=== PATIENT | female | born 1960 | race Caucasian/White ===

== ENCOUNTER → 2016-12-17 | Outpatient (REF) | payer OTHER ==
[~2016-12-17] MED LIST: CIPR500T3 PO; PERCOCET PO
== END ==
LOC: M SMT 16:53
PROVIDERS: ATTEND Nurse Practitioner Women's Health
DX: R39.15 Urgency of urination (principal)

== ENCOUNTER → 2017-01-10 | Outpatient (REF) | payer OTHER | LOC: M SMT 17:02 | PROVIDERS: ATTEND Specialist | DX: R35.0 Frequency of micturition (principal) ==

== ENCOUNTER → 2017-04-11 | Outpatient (REF) | payer OTHER ==
[2017-04-11 18:27] LABS: TOTAL PROTEIN 6.8 GM/DL (6.4-8.2)
[2017-04-11 18:28] LABS: VITAMIN B12 LEVEL 361 PG/ML
[2017-04-15 00:09] LABS: VITAMIN E LEVEL 16.7 mg/L (5.3-16.8)
[2017-04-15 11:54] LABS: ALBUMIN % 63.3 % (55.8-66.1); GAMMA GLOBULIN % 10.3 % (11.1-18.8)
== END ==
LOC: M LABNEURO 17:08
PROVIDERS: ATTEND Psychiatry & Neurology Neurology
DX: G72.9 Myopathy, unspecified (principal); G60.9 Hereditary and idiopathic neuropathy, unspecified

== ENCOUNTER → 2017-05-03 | Outpatient (CLI) | payer OTHER ==
--- NOTE | 2017-05-03 10:56 | REP ---
CT CHEST WITHOUT CONTRAST: HISTORY: Follow-up pulmonary nodule. Comparison chest CT study May 01, 2016. CT FINDINGS: There is no evidence of pleural or pericardial effusion. No infiltrate or lung mass is seen. Neither of the ground-glass opacities identified on May 01, [address] can be seen today. There are some dependent interstitial markings in the posterior lung bases bi laterally. No significant nodule is seen on today's CT study. The prior study showed a small 2 mm focal nodular density along the major fissure on the left. This cannot be seen today. No hilar or mediastinal mass is observed. No adrenal lesion is seen. The visualized upper abdominal structures are unremarkable. No bony abnormality is seen. IMPRESSION: No active cardiopulmonary disease. No significant pulmonary nodule is visible. Signed by Ryan Martinez MD 05/03/2017 11:51 A
== END ==
LOC: M RAD 08:50
PROVIDERS: ATTEND Internal Medicine Pulmonary Disease
DX: R91.1 Solitary pulmonary nodule (principal)

== ENCOUNTER → 2017-06-07 | Outpatient (CLI) | payer OTHER ==
--- NOTE | 2017-06-07 17:06 | REP ---
HISTORY: Assess first tarsometatarsal joint. There has been previous ORIF of the first tarsometatarsal joint. There are four internally affixing screws with an internal fixation plate medially. The first tarsometatarsal joint is markedly narrowed and irregular, but there is no evidence of complete fusion. There is marginal osteophytosis. Moderate degenerative change is seen throughout the foot. There is no evidence of an acute fracture. IMPRESSION: Previous ORIF and chronic changes as described above. Signed by Yusuf Cohen DO 06/07/2017 05:12 P
== END ==
LOC: M RAD 14:45
PROVIDERS: ATTEND Orthopaedic Surgery
DX: M77.42 Metatarsalgia, left foot (principal)

== ENCOUNTER → 2017-08-15 | Outpatient (CLI) | payer OTHER ==
[~2017-08-15] MED LIST changes: +ASPI1TAB PO; +BELL16.218 PR; +D32000TA PO; +FLOM5CAP PO; +LOSA50TA20 PO; +MAGN500T2 PO; +METO1TAB7 PO; +ONE50TAB PO; +OSPH1TAB PO; +OXYC1TAB23 PO; +PENT10CA PO; +RANI1TAB38 PO; +SERT50TA PO; +TRAZ50TA11 PO; +TRIPCAP6 PO
[2017-08-15 18:30] LABS: MEAN CORPUSCULAR HEMOGLOBIN 29.8 pg (27.0-33.0); MEAN CORPUSCULAR HGB CONC 32.6 g/dl (32.0-36.5); MEAN CORPUSCULAR VOLUME 91.5 fl (80.0-96.0); PLATELET COUNT, AUTOMATED 275 10^3/uL (150-450); RED CELL DISTRIBUTION WIDTH 12.1 % (11.5-14.5); WHITE BLOOD COUNT 6.4 10^3/uL (4.0-10.0)
[2017-08-15 18:51] LABS: ANION GAP 10 MEQ/L (8-16); BLOOD UREA NITROGEN 15 MG/DL (7-18); CALCIUM LEVEL 8.9 MG/DL (8.5-10.1); CARBON DIOXIDE LEVEL 29 MEQ/L (21-32); CHLORIDE LEVEL 100 MEQ/L (98-107); CREATININE FOR GFR 0.97 MG/DL (0.55-1.02); GLOMERULAR FILTRATION RATE > 60.0 (>51); GLUCOSE, FASTING 89 MG/DL (70-105); POTASSIUM SERUM 4.1 MEQ/L (3.5-5.1); SODIUM LEVEL 139 MEQ/L (136-145)
== END ==
LOC: M SMT 14:56
PROVIDERS: ATTEND Specialist
DX: Z01.812 Encounter for preprocedural laboratory examination (principal); R32 Unspecified urinary incontinence; R39.15 Urgency of urination; R35.1 Nocturia; N30.10 Interstitial cystitis (chronic) without hematuria; R39.89 Other symptoms and signs involving the genitourinary system

== ENCOUNTER 2017-08-19 08:11 | Day surgery (SDC) | payer OTHER ==
[~2017-08-19] VITALS: Ht 177.8 cm; Wt 88.5 kg
[~2017-08-19 08:11] MED LIST changes: -BELL16.218 PR; -OXYC1TAB23 PO
[2017-08-19] MEDS ORDERED: LR 1,000 ML IV ONE (08:15)
[2017-08-19] MEDS ORDERED: BOTULINUM INJ 100 UNITS (J0585) XX ONE (09:00)
[2017-08-19] MEDS ORDERED: fentaNYL 100 MCG/2 ML INJECTION (J3010) As Ordered ONE (09:28)
[2017-08-19] MEDS ORDERED: MIDAZOLAM INJ 2 MG/2 ML VIAL (J2250) As Ordered ONE (09:28)
[2017-08-19] MEDS ORDERED: PROPOFOL 200 MG/20 ML VIAL As Ordered ONE ×4 (09:28→11:45)
[2017-08-19] MEDS ORDERED: LIDOCAINE 2% INJ 100 MG/5 ML SDV (FOR ANES.) As Ordered ONE (09:28)
[2017-08-19] MEDS ORDERED: ROCURONIUM BROMIDE 50 MG/5 ML VIAL As Ordered ONE (09:28)
[2017-08-19] MEDS ORDERED: ONDANSETRON 4MG/2ML VIAL (J2405) As Ordered ONE (09:28)
[2017-08-19] MEDS ORDERED: LIDOCAINE 2% 5ML JELLY UROJET As Ordered ONE (10:41)
[2017-08-19] MEDS ORDERED: LIDOCAINE 2% MDV 20 ML VIAL As Ordered ONE (10:41)
[2017-08-19] MEDS ORDERED: BOTULINUM INJ 100 UNITS (J0585) As Ordered ONE ×2 (10:41→10:56)
[2017-08-19] MEDS ORDERED: BELLADONNA ALKALOIDS/OPIUM SUPP PR ONE ×3 (12:15→13:00)
[2017-08-19] MEDS ORDERED: fentaNYL 100 MCG/2 ML INJECTION (J3010) IV PRN (12:15)
[2017-08-19] MEDS ORDERED: ONDANSETRON 4MG/2ML VIAL (J2405) IV PRN (12:15)
[2017-08-19] MEDS ORDERED: LR 1,000 ML IV SCH (12:15)
[2017-08-19] MEDS ORDERED: BELL16.218 PR (12:18)
[2017-08-19] MEDS ORDERED: OXYC1TAB23 PO (12:19)
[2017-08-19 12:50] VITALS: BP 129/64
[2017-08-19] MEDS ORDERED: PERCOCET 5MG/325MG TAB As Ordered ONE (13:29)
[2017-08-19] MEDS ORDERED: PERCOCET 5MG/325MG TAB PO ONE (13:45)
--- NOTE | 2017-08-19 18:28 | RO ---
DATE OF PROCEDURE: 08/19/2017 PREOPERATIVE DIAGNOSIS: Interstitial cystitis. POSTOPERATIVE DIAGNOSIS: Interstitial cystitis with severe lateral ulcerations. PROCEDURE: Cystoscopy, hydrodistention, bladder biopsies, extensive fulguration, intravaginal Botox, intravesical Botox SURGEON: Dr. Tracy Hogan ANESTHESIA: General. MEDICATIONS: Ancef 2 grams preoperatively. SPECIMENS: Bladder biopsies. INDICATIONS FOR PROCEDURE: The patient is a 57-year-old female who has very severe urinary urgency, frequency, nocturia, burning with urination, and pain and spasms found on physical examination to have levator ani spasming. Urodynamic studies were redone since there was a question of obstruction but the second study did not show obstruction it just showed hypersensation and a small bladder capacity. After discussing all different options, alternatives, risks, and benefits it was decided to bring the patient to the operating room for cystoscopy, hydrodistention, bladder biopsies, intravaginal and intravesical Botox. We discussed exactly how this is done and what to expect both pre- and postprocedurally. We discussed the risks of the procedure which included but was not limited to the risks of general anesthesia, reactions to medication, bleeding, infection, difficulty urinating post procedurally with urinary retention. Informed consent was obtained in both verbal and written form. The patient was brought into the operating room. Sequential compression devices were in place and preoperative antibiotics had been given. General anesthesia was induced. The patient was then placed in the lithotomy position and careful attention was paid that her pressure points were well padded and protected. She was prepped and draped in the usual fashion. Next a rigid cystoscope was inserted. The urethra was noted to be open without any evidence of lesions or strictures. Upon entering the bladder both ureteral orifices were seen. There was hyperemia but no evidence of stones, erythematous patches or lesions were seen. At this point the patient's bladder was distended under gravity drainage using normal saline. This was distended for a total of 10 minutes. There was some detrusor instability with leakage around the cystoscope. When the bladder was emptied. She only had a total bladder capacity of 400 mL under anesthesia. She has significant bloody efflux and was found on repeat cystoscopy to have very significant bladder ulcerations. At this point bladder biopsies were done an extensive fulguration was done of the ulcerations after the fluid was switched to sterile water. Next, Botox was injected with 100 units throughout the bladder with 10 units each with 1 mL. Fulguration was done on one area that was bleeding. Next a 100 units of Botox was then injected in the levator ani muscles also in 10 different areas throughout the vagina using a 20 gauge needle. The patient had vaginal packing put in afterwards just for some acute bleeding and this will be removed in the recovery room. The patient was returned to the recovery room in stable condition.
== END 2017-08-19 14:10 | disposition home or self-care (01) ==
LOC: M SDC 08:11
PROVIDERS: ATTEND Specialist
DX: N30.10 Interstitial cystitis (chronic) without hematuria (principal); N32.89 Other specified disorders of bladder; R32 Unspecified urinary incontinence; R39.15 Urgency of urination; R35.1 Nocturia; I10 Essential (primary) hypertension; E78.00 Pure hypercholesterolemia, unspecified; K21.9 Gastro-esophageal reflux disease without esophagitis; M19.90 Unspecified osteoarthritis, unspecified site; M54.2 Cervicalgia; R29.898 Other symptoms and signs involving the musculoskeletal system; F32.9 Major depressive disorder, single episode, unspecified; R06.02 Shortness of breath; Z79.899 Other long term (current) drug therapy; Z79.82 Long term (current) use of aspirin; Z86.79 Personal history of other diseases of the circulatory system; Z90.710 Acquired absence of both cervix and uterus; Z98.51 Tubal ligation status

== ENCOUNTER 2017-12-30 10:58 | Day surgery (SDC) | payer OTHER ==
[2017-12-30] MEDS: NS 1,000 ML IV (12:25)
[2017-12-30] MEDS ORDERED: PROPOFOL 200 MG/20 ML VIAL As Ordered (13:11)
== END 2017-12-30 14:21 | disposition home or self-care (01) ==
LOC: M OPP 10:58
DX: R19.4 Change in bowel habit (principal); K59.00 Constipation, unspecified; K64.8 Other hemorrhoids; K22.70 Barrett's esophagus without dysplasia; K21.9 Gastro-esophageal reflux disease without esophagitis; K22.8 Other specified diseases of esophagus; K44.9 Diaphragmatic hernia without obstruction or gangrene; R01.1 Cardiac murmur, unspecified; I10 Essential (primary) hypertension; E78.5 Hyperlipidemia, unspecified; M19.90 Unspecified osteoarthritis, unspecified site; M54.9 Dorsalgia, unspecified; F32.9 Major depressive disorder, single episode, unspecified; Z87.828 Personal history of other (healed) physical injury and trauma; R42 Dizziness and giddiness; R06.2 Wheezing; N30.90 Cystitis, unspecified without hematuria; Z79.82 Long term (current) use of aspirin; Z79.899 Other long term (current) drug therapy; Z80.1 Family history of malignant neoplasm of trachea, bronchus and lung; Z80.3 Family history of malignant neoplasm of breast
CPT/HCPCS: 45378

== ENCOUNTER 2018-01-27 08:53 | Day surgery (SDC) | payer OTHER ==
[~2018-01-27 08:53] MED LIST changes: +ACETAMINOPHEN 325 MG TAB PO; -ASPI1TAB PO; -CIPR500T3 PO; -D32000TA PO; -FLOM5CAP PO; -LOSA50TA20 PO; -MAGN500T2 PO; -METO1TAB7 PO; -ONE50TAB PO; -OSPH1TAB PO; -PENT10CA PO; -PERCOCET PO; -RANI1TAB38 PO; -SERT50TA PO; -TRAZ50TA11 PO; -TRIPCAP6 PO
[2018-01-27] MEDS ORDERED: TRIMETHOBENZAMIDE 300 MG CAP PO (09:00)
[2018-01-27] MEDS ORDERED: LIDOCAINE 1% SDV 5 ML VIAL SQ (09:00)
[2018-01-27] MEDS: LIDOCAINE 3.5 % 1ML OPHTH TOPICAL GEL OU (10:41)
[2018-01-27] MEDS ORDERED: MIDAZOLAM INJ 2 MG/2 ML VIAL (J2250) As Ordered (10:57)
[2018-01-27] MEDS ORDERED: PROPOFOL 200 MG/20 ML VIAL As Ordered (10:57)
[2018-01-27] MEDS ORDERED: fentaNYL 100 MCG/2 ML INJECTION (J3010) As Ordered (10:57)
[2018-01-27] MEDS: POVIDONE-IODINE 5% OPHTH PREP SOL 30ML As Ordered (10:59)
[2018-01-27] MEDS: TOBRADEX OPHTH OINT 3.5 GM As Ordered (11:15)
[2018-01-27] MEDS ORDERED: ACETAMINOPHEN TAB 650MG DOSE (2X325MG) PO (11:45)
[2018-01-27] MEDS ORDERED: ONDANSETRON 4MG/2ML VIAL (J2405) IV (11:45)
[2018-01-27] MEDS ORDERED: LR 1,000 ML IV (11:45)
== END 2018-01-27 12:07 | disposition home or self-care (01) ==
LOC: M SDC 08:53
DX: H02.834 Dermatochalasis of left upper eyelid (principal); H02.831 Dermatochalasis of right upper eyelid; I10 Essential (primary) hypertension; R32 Unspecified urinary incontinence; M17.0 Bilateral primary osteoarthritis of knee; M47.812 Spondylosis without myelopathy or radiculopathy, cervical region; E55.9 Vitamin D deficiency, unspecified; K58.1 Irritable bowel syndrome with constipation; G47.00 Insomnia, unspecified; E78.00 Pure hypercholesterolemia, unspecified; R12 Heartburn; F32.9 Major depressive disorder, single episode, unspecified; R42 Dizziness and giddiness; Z79.899 Other long term (current) drug therapy; Z79.82 Long term (current) use of aspirin
CPT/HCPCS: 15823

== ENCOUNTER → 2018-04-10 | Outpatient (CLI) | payer OTHER ==
[~2018-04-10] MED LIST changes: -ACETAMINOPHEN 325 MG TAB PO; +METHACHOLINE KIT (J7674) INH
== END ==
LOC: M CARPUL 10:51
DX: R94.2 Abnormal results of pulmonary function studies (principal)
CPT/HCPCS: J7674

== ENCOUNTER → 2018-06-19 | Outpatient (REF) | payer OTHER ==
[2018-06-19 18:37] LABS: BACTERIA, URINE AUTO NEGATIVE (NEGATIVE); MUCUS, URINE SMALL (NEGATIVE); RBC, URINE AUTO 2 /HPF (0-3); SQUAMOUS EPITHELIAL CELL UR AU 1 /HPF (0-6); WBC, URINE AUTO 4 /HPF (0-3)
== END ==
LOC: M SMT 17:10
DX: R32 Unspecified urinary incontinence (principal)
CPT/HCPCS: 81015

== ENCOUNTER 2018-07-01 12:20 | Emergency (ER) | payer OTHER ==
[2018-07-01] MEDS: NS 500 ML IV (13:29)
[2018-07-01 13:42] LABS: BASO % 0.3 % (0.0-1.0); EOS # 0.1 10^3/uL (0.0-0.50); HEMATOCRIT 36.9 % (36.0-47.0); HEMOGLOBIN 12.2 g/dl (12.0-15.5); IMMATURE GRANULOCYTE % 0.3 % (0-3.0); LYMPH # 1.5 10^3/uL (1.5-4.5); LYMPH % 20.6 % (24.0-44.0); MEAN CORPUSCULAR HEMOGLOBIN 30.1 pg (27.0-33.0); MEAN CORPUSCULAR HGB CONC 33.1 g/dl (32.0-36.5); MEAN CORPUSCULAR VOLUME 91.1 fl (80.0-96.0); MONO # 0.8 10^3/uL (0.0-0.8); MONO % 11.4 % (0.0-5.0); NEUTROPHILS # 4.7 10^3/uL (1.8-7.7); NEUTROPHILS % 66.4 % (36.0-66.0); PLATELET COUNT, AUTOMATED 212 10^3/uL (150-450); RED BLOOD COUNT 4.05 10^6/uL (4.00-5.40); RED CELL DISTRIBUTION WIDTH 12.3 % (11.5-14.5); WHITE BLOOD COUNT 7.1 10^3/uL (4.0-10.0)
[2018-07-01 14:17] LABS: ANION GAP 5 MEQ/L (8-16); BLOOD UREA NITROGEN 17 MG/DL (7-18); CALCIUM LEVEL 8.7 MG/DL (8.8-10.2); CARBON DIOXIDE LEVEL 30 MEQ/L (21-32); CHLORIDE LEVEL 104 MEQ/L (98-107); CREATININE FOR GFR 1.01 MG/DL (0.55-1.30); GLOMERULAR FILTRATION RATE 59.5 (>45); GLUCOSE, FASTING 91 MG/DL (70-100); POTASSIUM SERUM 4.4 MEQ/L (3.5-5.1); SODIUM LEVEL 139 MEQ/L (136-145)
[2018-07-01 14:18] LABS: CK-MB VALUE MASS < 1.0 NG/ML (<3.6); CPK CREATINE PHOSPHOKINASE 42 U/L (26-192); TROPONIN I < 0.02 NG/ML (< 0.10)
[2018-07-01] MEDS ORDERED: ISOVUE-370 76% 100ML VIAL (Q9967) As Ordered (14:39)
[2018-07-01 14:55] LABS: ALKALINE PHOSPHATASE 63 U/L (45-117); ALT/SGPT 23 U/L (12-78); AST/SGOT 13 U/L (7-37); BILIRUBIN,DIRECT 0.2 MG/DL (0.0-0.2); BILIRUBIN,TOTAL 0.6 MG/DL (0.2-1.0); TOTAL PROTEIN 6.4 GM/DL (6.4-8.2)
[2018-07-01 14:56] LABS: ALBUMIN 3.7 GM/DL (3.2-5.2); ALBUMIN/GLOBULIN RATIO 1.37 (1.00-1.93)
[2018-07-01 15:01] LABS: KETONE, URINE AUTO RFX NEGATIVE (NEGATIVE); MUCUS, URINE RFX SMALL (NEGATIVE); NITRITE, URINE AUTO RFX NEGATIVE (NEGATIVE); RBC, URINE AUTO RFX 7 /HPF (0-3); SPECIFIC GRAVITY UR AUTO RFX 1.009 (1.002-1.035); SQUAM EPITHELIAL CELL UR AURFX 1 /HPF (0-6); WBC, URINE AUTO RFX 4 /HPF (0-3)
[2018-07-01 15:02] LABS: LEUKOCYTE ESTERASE UR AUTO RFX TRACE (NEGATIVE)
== END 2018-07-01 16:17 | disposition home or self-care (01) ==
LOC: M ED 12:20
DX: K37 Unspecified appendicitis (principal)
CPT/HCPCS: Q9967

== ENCOUNTER → 2018-07-15 | Outpatient (CLI) | payer OTHER ==
[2018-07-15 12:05] LABS: HEMATOCRIT 39.9 % (36.0-47.0); MEAN CORPUSCULAR HEMOGLOBIN 29.8 pg (27.0-33.0); MEAN CORPUSCULAR HGB CONC 32.6 g/dl (32.0-36.5); MEAN CORPUSCULAR VOLUME 91.5 fl (80.0-96.0); PLATELET COUNT, AUTOMATED 316 10^3/uL (150-450); RED BLOOD COUNT 4.36 10^6/uL (4.00-5.40); RED CELL DISTRIBUTION WIDTH 12.1 % (11.5-14.5); WHITE BLOOD COUNT 6.8 10^3/uL (4.0-10.0)
[2018-07-15 12:33] LABS: AMORPHOUS SEDIMENT, URINE MOD AMOUNT (NEGATIVE); BACTERIA, URINE SMALL AMOUNT; GRANULAR CAST, URINE 0-1 /lpf; HYALINE CAST, URINE 0-1 /lpf (0-1); SQUAMOUS EPITHELIAL CELL URINE SMALL AMOUNT /hpf (SMALL AMT); TRANSITIONAL EPI CELLS, URINE SMALL AMOUNT /hpf; WBC, URINE 15-20 /hpf (0-3)
[2018-07-15 12:34] LABS: MICROSCOPIC EXAM PERFORMED
[2018-07-15 14:13] LABS: ALBUMIN 3.8 GM/DL (3.2-5.2); ALBUMIN/GLOBULIN RATIO 1.36 (1.00-1.93); ALKALINE PHOSPHATASE 58 U/L (45-117); ALT/SGPT 42 U/L (12-78); ANION GAP 9 MEQ/L (8-16); AST/SGOT 24 U/L (7-37); BILIRUBIN,TOTAL 0.5 MG/DL (0.2-1.0); BLOOD UREA NITROGEN 16 MG/DL (7-18); CARBON DIOXIDE LEVEL 29 MEQ/L (21-32); CHLORIDE LEVEL 102 MEQ/L (98-107); CREATININE FOR GFR 0.94 MG/DL (0.55-1.30); GLOMERULAR FILTRATION RATE > 60.0 (>45); GLUCOSE, FASTING 85 MG/DL (70-100); POTASSIUM SERUM 4.4 MEQ/L (3.5-5.1); SODIUM LEVEL 140 MEQ/L (136-145); TOTAL PROTEIN 6.6 GM/DL (6.4-8.2)
== END ==
LOC: M LAB 10:25
DX: R32 Unspecified urinary incontinence (principal)
CPT/HCPCS: 80053

== ENCOUNTER 2018-07-22 08:07 | Day surgery (SDC) | payer OTHER ==
[2018-07-22] MEDS ORDERED: fentaNYL 250 MCG/5 ML INJECTION (J3010) As Ordered (08:14)
[2018-07-22] MEDS ORDERED: LIDOCAINE 2% INJ 100 MG/5 ML SDV (FOR ANES.) As Ordered (08:14)
[2018-07-22] MEDS ORDERED: PROPOFOL 200 MG/20 ML VIAL As Ordered ×4 (08:14→10:28)
[2018-07-22] MEDS ORDERED: MIDAZOLAM INJ 2 MG/2 ML VIAL (J2250) As Ordered (08:15)
[2018-07-22] MEDS: LR 1,000 ML IV (08:33)
[2018-07-22] MEDS: BOTULINUM INJ 100 UNITS (J0585) XX (08:45)
[2018-07-22] MEDS ORDERED: METOPROLOL SUCC *XL* 25MG TAB (TopROL *XL*) PO (09:15)
[2018-07-22] MEDS ORDERED: fentaNYL 100 MCG/2 ML INJECTION (J3010) As Ordered (09:20)
[2018-07-22] MEDS: BOTULINUM INJ 100 UNITS (J0585) As Ordered ×3 (09:34→10:10)
[2018-07-22] MEDS ORDERED: ONDANSETRON 4MG/2ML VIAL (J2405) As Ordered (10:05)
[2018-07-22] MEDS ORDERED: dexameTHASONE 4 MG/ML 1ML VIAL (J1100) As Ordered ×2 (10:05)
[2018-07-22] MEDS ORDERED: KETOROLAC 60 MG/2 ML VIAL (J1885) As Ordered (10:05)
[2018-07-22] MEDS: LIDOCAINE 2% 5ML JELLY UROJET As Ordered ×2 (10:05)
[2018-07-22] MEDS: LIDOCAINE 1% MDV INJ 50 ML VIAL As Ordered (10:05)
[2018-07-22] MEDS: TRIAMCINOLONE ACETONIDE SUSP 40 MG/ML VIAL (J3301) As Ordered (10:30)
[2018-07-22] MEDS ORDERED: MORPHINE 10 MG/ML 1ML VIAL (J2270) As Ordered (10:55)
[2018-07-22] MEDS ORDERED: PERCOCET 5MG/325MG TAB PO (11:00)
[2018-07-22] MEDS ORDERED: fentaNYL 100 MCG/2 ML INJECTION (J3010) IV (11:00)
[2018-07-22] MEDS ORDERED: LR 1,000 ML IV (11:00)
[2018-07-22] MEDS: MORPHINE 10 MG/ML 1ML VIAL (J2270) IV ×3 (11:00→11:10)
[2018-07-22] MEDS ORDERED: ONDANSETRON 4MG/2ML VIAL (J2405) IV (11:00)
[2018-07-22] MEDS ORDERED: METOCLOPRAMIDE INJ 10MG/2ML VIAL (J2765) IV (11:00)
[2018-07-22] MEDS ORDERED: MEPERIDINE INJ 25 MG/ML VIAL (J2175) IV (11:00)
== END 2018-07-22 12:50 | disposition home or self-care (01) ==
LOC: M SDC 08:07
DX: R35.0 Frequency of micturition (principal); R39.15 Urgency of urination; R32 Unspecified urinary incontinence; R39.89 Other symptoms and signs involving the genitourinary system; N30.10 Interstitial cystitis (chronic) without hematuria; I10 Essential (primary) hypertension; E78.5 Hyperlipidemia, unspecified; Z79.82 Long term (current) use of aspirin; Z79.899 Other long term (current) drug therapy
CPT/HCPCS: 52287

== ENCOUNTER → 2018-09-18 | Outpatient (CLI) | payer OTHER ==
[~2018-09-18] MED LIST changes: +ASPI1TAB PO; +BELL16.218 PR; +CIPR-249 PO; +CIPR500T3 PO; +D32000TA PO; +FLAG500T PO; +FLOM0.4C39 PO; +GASTROGRAFIN SOLUTION 30ML (Q9963) As Ordered ONE; +ISOVUE-370 76% 100ML VIAL (Q9967) As Ordered ONE; +LOSA50TA88 PO; +MAGN500T2 PO; -METHACHOLINE KIT (J7674) INH; +METO1TAB7 PO; +MIRA3350 PO; +ONE50TAB PO; +OSPH1TAB PO; +OXYC1TAB23 PO; +PENT10CA PO; +PERC5TAB12 PO; +PERCOCET PO; +RANI1TAB38 PO; +SERT50TA PO; +TRAZ-160 PO; +TRIPCAP6 PO; +ZOFR4TAB14 PO
--- NOTE | 2018-09-19 05:25 | REP ---
Clinical: Upper abdominal pain. Technique: Axial contrast enhanced images from the lung bases to the pubic symphysis using oral (per protocol) and 100 ml Isovue 370 intravenous contrast material with coronal and sagittal re-formations. Comparison: 07/01/2018. Findings: Lung bases are clear. Visualized heart and pericardium appears normal. Small hiatal hernia identified at the gastroesophageal junction. Liver, spleen, pancreas, gallbladder, bilateral adrenal glands and kidneys are normal. The enteric system is without obstruction or acute inflammatory process. Previously noted area of inflammatory change involving the greater omentum has resolved. Pelvis demonstrates relatively normal, partially collapsed bladder and evidence for prior hysterectomy. No ascites. No adenopathy. No free air. Abdominal aorta and vasculature without aneurysm or dissection. Musculoskeletal structures demonstrate age-related changes without focal osseous abnormality. Impression: 1. Hiatal hernia. 2. Prior hysterectomy. 3. No acute abdominopelvic pathology appreciated. Electronically Signed by Shailesh Kim MD 09/19/2018 05:16 A
== END ==
LOC: M RAD 15:27
PROVIDERS: ATTEND Physician Assistant Medical
DX: R93.3 Abnormal findings on diagnostic imaging of other parts of digestive tract (principal); R10.10 Upper abdominal pain, unspecified
CPT/HCPCS: 74177; Q9963; Q9967

== ENCOUNTER → 2018-09-24 | Outpatient (REF) | payer OTHER ==
[~2018-09-24] MED LIST changes: -GASTROGRAFIN SOLUTION 30ML (Q9963) As Ordered ONE; -ISOVUE-370 76% 100ML VIAL (Q9967) As Ordered ONE
[2018-09-24 18:46] LABS: BACTERIA, URINE AUTO NEGATIVE (NEGATIVE); MUCUS, URINE SMALL (NEGATIVE); RBC, URINE AUTO 89 /HPF (0-3); SQUAMOUS EPITHELIAL CELL UR AU 1 /HPF (0-6); WBC, URINE AUTO 1 /HPF (0-3)
== END ==
LOC: M SMT 17:03
PROVIDERS: ATTEND Specialist
DX: R32 Unspecified urinary incontinence (principal)

== ENCOUNTER → 2018-10-27 | Outpatient (REF) | payer OTHER ==
[2018-10-27 18:12] LABS: BACTERIA, URINE AUTO 1+ (NEGATIVE); RBC, URINE AUTO 17 /HPF (0-3); SQUAMOUS EPITHELIAL CELL UR AU 0 /HPF (0-6); WBC, URINE AUTO 17 /HPF (0-3)
== END ==
LOC: M SMT 16:58
PROVIDERS: ATTEND Specialist
DX: R32 Unspecified urinary incontinence (principal)

== ENCOUNTER 2018-11-14 06:02 | Day surgery (SDC) | payer OTHER ==
[~2018-11-14] VITALS: Ht 177.8 cm; Wt 82.6 kg
[~2018-11-14 06:02] MED LIST changes: +LR 1,000 ML IV ONE; +ZOFR4TAB16 PO
[2018-11-14] MEDS ORDERED: ceFAZolin 2 GM/D5W 50 ML IV BAG (J0690 PER 500MG) As Ordered ONE (06:34)
[2018-11-14] MEDS ORDERED: PROPOFOL 200 MG/20 ML VIAL As Ordered ONE ×2 (06:47→08:02)
[2018-11-14] MEDS ORDERED: ONDANSETRON 4MG/2ML VIAL (J2405) As Ordered ONE (06:47)
[2018-11-14] MEDS ORDERED: LIDOCAINE 2% INJ 100 MG/5 ML SDV (FOR ANES.) As Ordered ONE (06:47)
[2018-11-14] MEDS ORDERED: dexameTHASONE 4 MG/ML 1ML VIAL (J1100) As Ordered ONE (06:47)
[2018-11-14] MEDS ORDERED: ROCURONIUM BROMIDE 50 MG/5 ML VIAL As Ordered ONE (06:47)
[2018-11-14] MEDS ORDERED: fentaNYL 100 MCG/2 ML INJECTION (J3010) As Ordered ONE (06:48)
[2018-11-14] MEDS ORDERED: MIDAZOLAM INJ 2 MG/2 ML VIAL (J2250) As Ordered ONE (06:48)
[2018-11-14] MEDS ORDERED: LIDOCAINE 2% 5ML JELLY UROJET As Ordered ONE (07:12)
[2018-11-14] MEDS ORDERED: LIDOCAINE 1% MDV INJ 50 ML VIAL As Ordered ONE (07:12)
[2018-11-14] MEDS ORDERED: BOTULINUM INJ 100 UNITS (J0585) As Ordered ONE (07:12)
[2018-11-14] MEDS ORDERED: TRIAMCINOLONE ACETONIDE SUSP 40 MG/ML VIAL (J3301) As Ordered ONE (07:35)
[2018-11-14] MEDS ORDERED: KETOROLAC 60 MG/2 ML VIAL (J1885) As Ordered ONE (07:58)
[2018-11-14] MEDS ORDERED: fentaNYL 100 MCG/2 ML INJECTION (J3010) IV PRN (09:00)
[2018-11-14] MEDS ORDERED: NORCO, ANEXSIA 5/325MG TABLET (HYDROcodone/ACETAMINOPHEN) PO PRN (09:00)
[2018-11-14] MEDS ORDERED: ONDANSETRON 4MG/2ML VIAL (J2405) IV PRN (09:00)
[2018-11-14] MEDS ORDERED: LR 1,000 ML IV SCH (09:00)
--- NOTE | 2018-11-14 09:32 | RO ---
DATE OF PROCEDURE: 11/14/2018 PREOPERATIVE DIAGNOSIS: Interstitial cystitis of Dain's ulcerations with severe urinary urgency and urge incontinence. POSTOPERATIVE DIAGNOSIS: Interstitial cystitis of Dain's ulcerations with severe urinary urgency and urge incontinence. PROCEDURE: Cystoscopy, hydrodistention, and intravesical triamcinolone, and intravesical Botox with 100 units SURGEON: Dr. Tracy Hogan ANESTHESIA: MAC. MEDICATIONS: Ancef 2 grams preoperatively. DRAINS: None. FINDINGS: Significant Dain's ulcers throughout the bladder and difficulty distending the bladder because of significant detrusor instability and leakage. INDICATIONS FOR PROCEDURE: The patient is a 58-year-old female with a diagnosis of interstitial cystitis and Dain's ulcerations on L Rodarte was used the last year with biopsies showing dense plasma cell infiltrate and mass cells in the past. She had undergone cystoscopy, hydrodistention, and intravesical Botox 06/19/2018 and 08/19/2017, both with significant improvement. She comes in again with severe pain with urination, urinary frequency, urinary urgency, and urge incontinence. After discussing all different options, alternatives, risks, and benefits it was decided to bring her back to the operating room for surgical management. PROCEDURE: The patient was brought into the operating room. Sequential compression devices were in place and JACLYN stockings. Preoperative antibiotics were given. MAC anesthesia was induced and then she was placed in the lithotomy position. Careful attention was paid that her pressure points were well padded and protected. She was prepped and draped in the usual fashion. Next a 21-Romansh cystoscope was inserted and normal saline was used upon entering the bladder both ureteral orifices were seen. There were significant Dain's ulcerations which were seen even prior to filling but which worsened significantly with bladder filling upon filling the bladder urine just leaked through the urethra with detrusor instability and leakage. I did try to hold the urethra up so that I could distend the bladder and held this distended for at least 10 minutes. The bladder was then emptied and next I utilized 40 mg per cc of triamcinolone and 10 mL of normal saline and I injected this throughout the ulcerations then I injected 100 units of Botox mixed with 10 mL of injectable saline also throughout the bladder in 1 mL increments. I then changed the scope to a continuous flow resectoscope with a loop and I fulgurated all the ulcerated areas. At this point the patient's bladder was emptied and a red rubber catheter was placed with a slurry of lidocaine 50 mL 1% and lidocaine jelly to help with postprocedural discomfort. The patient tolerated the procedure well and was returned to the recovery room in stable condition.
[2018-11-14 10:00] VITALS: BP 135/87
== END 2018-11-14 10:15 | disposition home or self-care (01) ==
LOC: M SDC 06:02
PROVIDERS: ATTEND Specialist
DX: N30.10 Interstitial cystitis (chronic) without hematuria (principal); N39.41 Urge incontinence; I10 Essential (primary) hypertension; K21.9 Gastro-esophageal reflux disease without esophagitis; R01.1 Cardiac murmur, unspecified; Z79.899 Other long term (current) drug therapy; Z79.82 Long term (current) use of aspirin
CPT/HCPCS: 52260; 52287; J0585; J0690; J1100; J1885; J2250; J2405; J3010; J3301

== ENCOUNTER → 2019-03-03 | Outpatient (REF) | payer OTHER ==
[~2019-03-03] MED LIST changes: -ASPI1TAB PO; +ASPI81TA26 PO; -LR 1,000 ML IV ONE; +SERT-141 PO; -SERT50TA PO; -TRAZ-160 PO; +TRAZ-252 PO
[2019-03-03 13:24] LABS: APPEARANCE, URINE HAZY (CLEAR); BACTERIA, URINE AUTO NEGATIVE (NEGATIVE); BILIRUBIN, URINE AUTO NEGATIVE (NEGATIVE); BLOOD, URINE BLOOD 2+ (NEGATIVE); COLOR, URINE YELLOW (YELLOW); GLUCOSE, URINE (UA) AUTO NEGATIVE (NEGATIVE); KETONE, URINE AUTO NEGATIVE (NEGATIVE); LEUKOCYTE ESTERASE, URINE AUTO 1+ (NEGATIVE); MUCUS, URINE SMALL (NEGATIVE); NITRITE, URINE AUTO NEGATIVE (NEGATIVE); PROTEIN, URINE AUTO 1+ mg/dL (NEGATIVE); RBC, URINE AUTO 26 /HPF (0-3); SQUAMOUS EPITHELIAL CELL UR AU 1 /HPF (0-6); UROBILINOGEN, URINE AUTO 0.2 mg/dL (0.0-2.0); WBC, URINE AUTO 34 /HPF (0-3)
== END ==
LOC: M SMT 12:36
PROVIDERS: ATTEND Nurse Practitioner Women's Health
DX: N30.10 Interstitial cystitis (chronic) without hematuria (principal)

== ENCOUNTER 2019-04-06 07:31 | Day surgery (SDC) | payer OTHER ==
[~2019-04-06] VITALS: Ht 177.8 cm; Wt 87.7 kg
[~2019-04-06 07:31] MED LIST changes: +LR 1,000 ML IV ONE
[2019-04-06] MEDS ORDERED: ceFAZolin 2 GM/D5W 50 ML IV BAG (J0690 PER 500MG) As Ordered ONE (07:54)
[2019-04-06] MEDS ORDERED: dexameTHASONE 4 MG/ML 1ML VIAL (J1100) As Ordered ONE (08:22)
[2019-04-06] MEDS ORDERED: LIDOCAINE 2% INJ 100 MG/5 ML SDV (FOR ANES.) As Ordered ONE (08:22)
[2019-04-06] MEDS ORDERED: PROPOFOL 200 MG/20 ML VIAL As Ordered ONE (08:22)
[2019-04-06] MEDS ORDERED: ONDANSETRON 4MG/2ML VIAL (J2405) As Ordered ONE (08:22)
[2019-04-06] MEDS ORDERED: fentaNYL 100 MCG/2 ML INJECTION (J3010) As Ordered ONE (08:23)
[2019-04-06] MEDS ORDERED: MIDAZOLAM INJ 2 MG/2 ML VIAL (J2250) As Ordered ONE (08:23)
[2019-04-06] MEDS ORDERED: LIDOCAINE 2% 5ML JELLY UROJET As Ordered ONE (09:17)
[2019-04-06] MEDS ORDERED: BOTULINUM INJ 100 UNITS (J0585) As Ordered ONE (09:23)
[2019-04-06] MEDS ORDERED: TRIAMCINOLONE ACETONIDE SUSP 40 MG/ML VIAL (J3301) As Ordered ONE ×2 (09:24→10:08)
[2019-04-06] MEDS ORDERED: KETOROLAC 60 MG/2 ML VIAL (J1885) As Ordered ONE (10:13)
[2019-04-06] MEDS ORDERED: LIDOCAINE 1% MDV INJ 50 ML VIAL As Ordered ONE (10:17)
[2019-04-06] MEDS ORDERED: LABETALOL HCL 100 MG/20 ML VIAL As Ordered ONE ×2 (10:26→11:27)
[2019-04-06] MEDS ORDERED: LABETALOL HCL 100 MG/20 ML VIAL IV PRN (10:45)
[2019-04-06] MEDS ORDERED: PERCOCET 5MG/325MG TAB PO PRN (10:45)
[2019-04-06] MEDS ORDERED: ONDANSETRON 4MG/2ML VIAL (J2405) IV PRN (10:45)
[2019-04-06] MEDS ORDERED: LR 1,000 ML IV SCH (10:45)
[2019-04-06] MEDS ORDERED: BELLADONNA 16.2mg/OPIUM 30mg 1 EA SUPP PR PRN (11:15)
[2019-04-06 13:20] VITALS: BP 125/70
--- NOTE | 2019-04-06 22:29 | RO ---
DATE OF PROCEDURE: 04/06/2019 PREOPERATIVE DIAGNOSIS: Interstitial cystitis with severe urgency and urge incontinence and urinary frequency with Hunner's ulcerations. POSTOPERATIVE DIAGNOSIS: Interstitial cystitis with severe urgency and urge incontinence and urinary frequency with Hunner's ulcerations. PROCEDURE: Cystoscopy, hydrodistention, extensive fulguration, intravesical Botox with 200 units, and triamcinolone. FINDINGS: Significant ulcerations throughout the bladder. SURGEON: Dr. Tracy Hogan ABRASIVE GRINDER: ANESTHESIA: INDICATIONS FOR PROCEDURE: The patient is a 58-year-old female with a history of interstitial cystitis with significant urinary urgency, frequency, and urge incontinence. She has had triamcinolone injections into the ulcers and Botox 100 units on 11/14/2018, 07/24/2018 and 08/19/2017. She called because after the last procedure, she did very well but now again is having severe urethral pain and significant urgency, frequency, and urge incontinence again and she would like to proceed with the same procedure. But this time we talked about that we would try to 200 units of Botox to see if this lasts a little bit longer this time. All different options, alternatives, risks and benefits were discussed. Informed consent was obtained. The biggest risk the patient understands is urinary retention requiring catheterization postprocedurally. DESCRIPTION OF PROCEDURE: The patient was brought into the operating room. Sequential compression devices were in place and preoperative antibiotics had been given, anesthesia was induced. She was then placed in the lithotomy position and careful attention was paid that her pressure points were well padded and protected. Next, she was prepped and draped in the usual fashion. A #21-Arabic cystoscope was inserted. The urethra was noted to be open without any evidence of lesions or strictures. Upon entering the bladder, both ureteral orifices were seen. Even before hydrodistention, there were significant ulcerations and erythema seen throughout the bladder, especially on the left lateral wall and the right base of the bladder. The bladder was distended, and there was significant leakage around the cystoscope, so it was hard to tell what the total bladder capacity was. At this point, extensive fulguration was done to the ulcerations. Next, 200 units of Botox was injected in 20 different injection sites throughout the bladder, 1 mL and 10 units of Botox each and then triamcinolone 40 mg/mL was injected into the Hunner's ulcerations with a 1/2 mL in each ulceration, and this was done about five for six times. At the conclusion of the procedure, the patient's bladder was emptied and a slurry of lidocaine jelly and 50 mL of intravesical lidocaine were placed intravesically through a red rubber catheter to help with postprocedural pain control. The patient tolerated the procedure well and was returned to the recovery room in stable condition.
== END 2019-04-06 14:16 | disposition home or self-care (01) ==
LOC: M SDC 07:31
PROVIDERS: ATTEND Specialist
DX: N30.10 Interstitial cystitis (chronic) without hematuria (principal); N39.41 Urge incontinence; R35.0 Frequency of micturition; N32.89 Other specified disorders of bladder; N76.1 Subacute and chronic vaginitis; I10 Essential (primary) hypertension; R01.1 Cardiac murmur, unspecified; K22.70 Barrett's esophagus without dysplasia; M19.90 Unspecified osteoarthritis, unspecified site; F32.9 Major depressive disorder, single episode, unspecified; J45.909 Unspecified asthma, uncomplicated; R11.0 Nausea; Z79.899 Other long term (current) drug therapy; Z79.82 Long term (current) use of aspirin; Z87.820 Personal history of traumatic brain injury; Z98.51 Tubal ligation status; Z90.710 Acquired absence of both cervix and uterus
CPT/HCPCS: 52214; 52265; 52287; J0585; J0690; J1100; J1885; J2250; J2405; J3010; J3301; L8606

== ENCOUNTER → 2019-06-15 | Outpatient (REF) | payer OTHER ==
[~2019-06-15] MED LIST changes: -LR 1,000 ML IV ONE; +OMEGCAP9 PO; +ONE50TAB3 PO
[2019-06-15 13:12] LABS: APPEARANCE, URINE CLOUDY (CLEAR); BACTERIA, URINE AUTO 1+ (NEGATIVE); BILIRUBIN, URINE AUTO NEGATIVE (NEGATIVE); BLOOD, URINE BLOOD 3+ (NEGATIVE); COLOR, URINE YELLOW (YELLOW); GLUCOSE, URINE (UA) AUTO NEGATIVE (NEGATIVE); KETONE, URINE AUTO NEGATIVE (NEGATIVE); LEUKOCYTE ESTERASE, URINE AUTO 2+ (NEGATIVE); MUCUS, URINE SMALL (NEGATIVE); NITRITE, URINE AUTO POSITIVE (NEGATIVE); PROTEIN, URINE AUTO 1+ mg/dL (NEGATIVE); RBC, URINE AUTO 115 /HPF (0-3); SPECIFIC GRAVITY URINE AUTO 1.015 (1.002-1.035); SQUAMOUS EPITHELIAL CELL UR AU 1 /HPF (0-6); UROBILINOGEN, URINE AUTO 0.2 mg/dL (0.0-2.0); WBC, URINE AUTO TNTC /HPF (0-3)
== END ==
LOC: M SMT 12:31
PROVIDERS: ATTEND Urology
DX: N30.10 Interstitial cystitis (chronic) without hematuria (principal)

== ENCOUNTER → 2019-07-27 | Outpatient (REF) | payer OTHER ==
[~2019-07-27] MED LIST changes: -OMEGCAP9 PO; -ONE50TAB3 PO
[2019-07-27 14:26] LABS: TOTAL PROTEIN,RANDOM URINE 53.2 MG/DL (0.0-12.0)
[2019-07-27 14:48] LABS: COMPLEMENT C3 150 MG/DL (90-180); COMPLEMENT C4 35 MG/DL (10-40); HEPATITIS B SURFACE ANTIBODY NEGATIVE (POSITIVE); HEPATITIS B SURFACE ANTIGEN NEGATIVE (NEGATIVE); TOTAL PROTEIN 7.3 GM/DL (6.4-8.2)
[2019-07-27 15:01] LABS: HEPATITIS B CORE ANTIBODY IGM NEGATIVE (NEGATIVE)
[2019-07-28 11:13] LABS: ALBUMIN 4.57 GM/DL (3.29-5.55); ALBUMIN % 62.6 % (55.8-66.1); ALPHA-1-GLOBULIN % 4.3 % (2.9-4.9); ALPHA-1-GLOBULINS 0.31 GM/DL (0.17-0.41); ALPHA-2-GLOBULINS 0.74 GM/DL (0.42-0.99); ALPHA-2-GLOBULINS % 10.1 % (7.1-11.8); BETA-1-GLOBULINS % 6.8 % (4.7-7.2); BETA-2-GLOBULINS 0.45 GM/DL (0.19-0.55); BETA-2-GLOBULINS % 6.1 % (3.2-6.5); GAMMA GLOBULIN % 10.1 % (11.1-18.8); GAMMA GLOBULINS 0.74 GM/DL (0.65-1.58)
[2019-07-30 00:06] LABS: ANCA-ATYPICAL <1:20 titer (Neg:<1:20); ANTI DS-DNA AB Negative (Negative); ANTI-GLOMERULAR BASEMENT MEMB 3 units (0-20); ANTINUCLEAR ANTIBODIES DIRECT Negative (Negative); CYTOPLASMIC NEUTROP AB ANCA-C <1:20 titer (Neg:<1:20); FREE KAPPA LIGHT CHAINS SERUM 12.3 mg/L (3.3-19.4); FREE LAMBDA LIGHT CHAINS SERUM 16.7 mg/L (5.7-26.3); KAPPA/LAMBDA RATIO SERUM 0.74 (0.26-1.65); PERINUCLEAR AB ANCA-P <1:20 titer (Neg:<1:20); SJOGREN'S ANTI SS-A <0.2 AI (0.0-0.9); SJOGREN'S ANTI SS-B <0.2 AI (0.0-0.9)
== END ==
LOC: M LAB REF 13:31
PROVIDERS: ATTEND Internal Medicine Nephrology
DX: R80.9 Proteinuria, unspecified (principal)

== ENCOUNTER → 2019-09-14 | Outpatient (REF) | payer OTHER ==
[2019-09-14 13:59] LABS: ALBUMIN 3.6 GM/DL (3.2-5.2); BLOOD UREA NITROGEN 16 MG/DL (7-18); CARBON DIOXIDE LEVEL 28 MEQ/L (21-32); CHLORIDE LEVEL 104 MEQ/L (98-107); CREATININE FOR GFR 0.98 MG/DL (0.55-1.30); GLOMERULAR FILTRATION RATE > 60.0 (>45); GLUCOSE, FASTING 122 MG/DL (70-100); PHOSPHORUS LEVEL 3.2 MG/DL (2.5-4.9); POTASSIUM SERUM 4.2 MEQ/L (3.5-5.1); SODIUM LEVEL 141 MEQ/L (136-145)
== END ==
LOC: M LAB REF 13:31
PROVIDERS: ATTEND Internal Medicine Nephrology
DX: N18.2 Chronic kidney disease, stage 2 (mild) (principal)

== ENCOUNTER → 2019-09-14 | Outpatient (REF) | payer OTHER ==
[2019-09-14 17:45] LABS: AMORPHOUS SEDIMENT SMALL (NEGATIVE); APPEARANCE, URINE TURBID (CLEAR); BACTERIA, URINE AUTO 1+ (NEGATIVE); BILIRUBIN, URINE AUTO NEGATIVE (NEGATIVE); BLOOD, URINE BLOOD 2+ (NEGATIVE); COLOR, URINE YELLOW (YELLOW); GLUCOSE, URINE (UA) AUTO NEGATIVE (NEGATIVE); KETONE, URINE AUTO NEGATIVE (NEGATIVE); LEUKOCYTE ESTERASE, URINE AUTO NEGATIVE (NEGATIVE); MUCUS, URINE MODERATE (NEGATIVE); NITRITE, URINE AUTO NEGATIVE (NEGATIVE); PROTEIN, URINE AUTO NEGATIVE (NEGATIVE); RBC, URINE AUTO 11 /HPF (0-3); SPECIFIC GRAVITY URINE AUTO 1.021 (1.002-1.035); SQUAMOUS EPITHELIAL CELL UR AU 0 /HPF (0-6); UROBILINOGEN, URINE AUTO 0.2 mg/dL (0.0-2.0); WBC, URINE AUTO 1 /HPF (0-3)
== END ==
LOC: M SMT 16:53
PROVIDERS: ATTEND Nurse Practitioner Women's Health
DX: N30.10 Interstitial cystitis (chronic) without hematuria (principal)

== ENCOUNTER 2019-09-25 10:57 | Day surgery (SDC) | payer OTHER ==
[~2019-09-25] VITALS: Ht 177.8 cm; Wt 88.5 kg
[~2019-09-25 10:57] MED LIST changes: +LIDOCAINE 1% MDV 20ML VIAL SQ PRN; +LR 1,000 ML IV ONE; +OMEGCAP9 PO; +ONE50TAB3 PO; +ceFAZolin SOD 2 GM in IV 1 EA IV ONE
[2019-09-25] MEDS ORDERED: MIDAZOLAM INJ 2 MG/2 ML VIAL (J2250) As Ordered ONE (12:22)
[2019-09-25] MEDS ORDERED: propofoL 500 MG/50 ML VIAL As Ordered ONE (12:23)
[2019-09-25] MEDS ORDERED: LIDOCAINE 2% INJ 100 MG/5 ML SDV (FOR ANES.) As Ordered ONE (12:26)
[2019-09-25] MEDS ORDERED: LIDOCAINE 2% 5ML JELLY UROJET As Ordered ONE (12:46)
[2019-09-25] MEDS ORDERED: LIDOCAINE 1% MDV INJ 50 ML VIAL As Ordered ONE (12:46)
[2019-09-25] MEDS ORDERED: BOTULINUM INJ 100 UNITS (J0585) As Ordered ONE ×2 (12:46→13:25)
[2019-09-25] MEDS ORDERED: TRIAMCINOLONE ACETONIDE SUSP 40 MG/ML VIAL (J3301) As Ordered ONE (12:58)
[2019-09-25] MEDS ORDERED: BELLADONNA 16.2mg/OPIUM 60mg 1 EA SUPP As Ordered ONE (13:20)
[2019-09-25] MEDS ORDERED: PERCOCET 5MG/325MG TAB As Ordered ONE (14:19)
[2019-09-25] MEDS ORDERED: PERCOCET 5MG/325MG TAB PO PRN (15:00)
[2019-09-25] MEDS ORDERED: LR 1,000 ML IV SCH (15:00)
[2019-09-25 17:30] VITALS: BP 131/60
--- NOTE | 2019-09-25 20:02 | RO ---
DATE OF PROCEDURE: 09/25/2019 PREOPERATIVE DIAGNOSIS: Interstitial cystitis with Dain's ulcerations with significant urinary urgency, frequency, and urge incontinence with nocturia. POSTOPERATIVE DIAGNOSIS: Interstitial cystitis with Dain's ulcerations with significant urinary urgency, frequency, and urge incontinence with nocturia. OPERATIVE PROCEDURE: Cystoscopy, hydrodistention, fulguration, injection of triamcinolone 40 mg/mL with 10 mL throughout the ulcerations, and intravesical Botox 200 units SURGEON: Dr. Tracy Hogan DIRECTOR OF OPERATIONS FOR THERAPY: ANESTHESIA: FINDINGS: Dain's ulcerations even prior to hydrodistention. INDICATIONS FOR PROCEDURE The patient is a 59-year-old female with interstitial cystitis found to have severe Dain's ulcerations. She also complains of significant urinary urgency, frequency, and urge incontinence and cannot take anticholinergic medications because of brain fogginess. She has had these procedures before and they help but only for a small amount of time. Her last procedure was April 06, 2019. Informed consent was obtained both in verbal and written form. It was decided again to place 200 units of Botox since this worked much better for her than the 100 units. DESCRIPTION OF PROCEDURE The patient was brought into the operating room. Sequential compression devices were in place. Anesthesia was induced. The patient was then placed in the lithotomy position and careful attention was paid that her pressure points were well padded and protected. She was prepped and draped in the usual fashion. Next, a 21-Nigerian cystoscope was inserted. The urethra was noted to be open without any evidence of lesions or strictures. Before even to stenting the bladder with more than 100 mL, there was significant ulcerations seen with active bleeding. At this point, the source was changed to sterile water and these ulcerations were fulgurated so that I had a better view of the bladder. At this point, triamcinolone was placed in the ulcerations with 1 mL per area of ulceration with at least 10 injections throughout using 40 mg/mL of triamcinolone and this had been mixed with 10 mL of normal saline. Next 200 units of Botox was placed symmetrically throughout the bladder bearing the trigone and these injection points were also fulgurated where needed. The patient's bladder was clear at the end of the procedure. Her bladder was emptied and then a red rubber catheter was placed with 10 mL of lidocaine and a lidocaine slurry that was mixed together for postprocedural pain control. The patient was returned to recovery room in stable condition.
== END 2019-09-25 17:55 | disposition home or self-care (01) ==
LOC: M SDC 10:57
PROVIDERS: ATTEND Specialist
DX: N30.10 Interstitial cystitis (chronic) without hematuria (principal); R39.15 Urgency of urination; R32 Unspecified urinary incontinence; R35.1 Nocturia; I12.9 Hypertensive chronic kidney disease with stage 1 through stage 4 chronic kidney disease, or unspecified chronic kidney disease; N18.2 Chronic kidney disease, stage 2 (mild); M81.0 Age-related osteoporosis without current pathological fracture; Z79.899 Other long term (current) drug therapy; Z79.82 Long term (current) use of aspirin
CPT/HCPCS: 52224; 52265; 52287; J0585; J0690; J2250; J3301

== ENCOUNTER → 2020-02-03 | Outpatient (CLI) | payer OTHER ==
[~2020-02-03] MED LIST changes: -LIDOCAINE 1% MDV 20ML VIAL SQ PRN; -LR 1,000 ML IV ONE; -ceFAZolin SOD 2 GM in IV 1 EA IV ONE
[2020-02-03 16:30] LABS: HEMATOCRIT 38.9 % (36.0-47.0); HEMOGLOBIN 12.8 g/dl (12.0-15.5); MEAN CORPUSCULAR HEMOGLOBIN 30.5 pg (27.0-33.0); MEAN CORPUSCULAR HGB CONC 32.9 g/dl (32.0-36.5); MEAN CORPUSCULAR VOLUME 92.6 fl (80.0-96.0); PLATELET COUNT, AUTOMATED 259 10^3/uL (150-450); WHITE BLOOD COUNT 4.8 10^3/uL (4.0-10.0)
[2020-02-03 16:45] LABS: C REACTIVE PROTEIN QUANTITATIV < 0.30 MG/DL (0.00-0.30); RHEUMATOID FACTOR QUANT < 10.0 IU/ML (<15.0)
[2020-02-03 18:22] LABS: ERYTHROCYTE SEDIMENTATION RATE 9 mm/hr (0-30)
[2020-02-09 20:08] LABS: ANTINUCLEAR ANTIBODIES DIRECT Negative (Negative); HLA-B27 Negative (.); Lyme Disease IgG/IgM Antibodie <0.91 ISR (0.00-0.90); Lyme Disease IgM Ab Quantitati <0.80 index (0.00-0.79)
== END ==
LOC: M WUC 14:55
PROVIDERS: ATTEND Orthopaedic Surgery
DX: S83.242A Other tear of medial meniscus, current injury, left knee, initial encounter (principal); X58.XXXA Exposure to other specified factors, initial encounter; Y92.9 Unspecified place or not applicable

== ENCOUNTER → 2020-07-07 | Outpatient (CLI) | payer OTHER ==
[~2020-07-07] MED LIST changes: +ESTR0.1C5; +OMEP-218; +SERT-138
== END ==
LOC: M LABSMTC 11:50
PROVIDERS: ATTEND Anesthesiology
DX: Z01.818 Encounter for other preprocedural examination (principal)
CPT/HCPCS: C9803; U0003

== ENCOUNTER 2020-07-12 15:00 | Day surgery (SDC) | payer OTHER ==
[~2020-07-12] VITALS: Ht 167.6 cm; Wt 94.3 kg
[~2020-07-12 15:00] MED LIST changes: +LIDOCAINE 2% 100MG/5ML SDV (FOR ANES.) As Ordered ONE; +NS 1,000 ML IV ONE; +propofoL 200 MG/20 ML VIAL As Ordered ONE
[2020-07-12] MEDS ORDERED: fentaNYL 100 MCG/2 ML INJECTION (J3010) As Ordered ONE (15:37)
--- NOTE | 2020-07-12 16:56 | ROOR ---
Patient Name: Jesse Avendano Procedure Date: 07/12/2020 4:40 PM Date of : 1960 Age: 60 Room: [facility] Gender: Female Note Status: Finalized Procedure: Upper GI endoscopy Indications: Surveillance for malignancy due to personal history of Sanchez's esophagus, Heartburn, Chronic cough Providers: Williams LOZANO MD Referring MD: Aminta Cervantes Np Requesting Provider: Medicines: Monitored Anesthesia Care Complications: No immediate complications. Procedure: Pre-Anesthesia Assessment: - The heart rate, respiratory rate, oxygen saturations, blood pressure, adequacy of pulmonary ventilation, and response to care were monitored throughout the procedure. The Endoscope was introduced through the mouth, and advanced to the second part of duodenum. The upper GI endoscopy was accomplished without difficulty. The patient tolerated the procedure well. Findings: There were esophageal mucosal changes consistent with short-segment Sanchez's esophagus present in the lower third of the esophagus. The maximum longitudinal extent of these mucosal changes was 1 cm in length. Mucosa was biopsied with a cold forceps for histology randomly from 39 to 40 cm from the incisors. One specimen bottle was sent to pathology. The exam of the esophagus was otherwise normal. Small Hiatal Hernia. The exam of the stomach was otherwise normal. The exam was otherwise without abnormality. Impression: - Esophageal mucosal changes consistent with short-segment (<1 cm) Sanchez's esophagus. Biopsied. - Small Hiatal Hernia. - The examination was otherwise normal. Recommendation: - Use a proton pump inhibitor PO BID indefinitely. - Telephone endoscopist for pathology results in 2 weeks. - Repeat upper endoscopy in 3 years for surveillance. Williams Lozano MD Williams LOZANO MD 07/12/2020 4:55:50 PM Electronically signed by Williams LOZANO MD Number of Addenda: 0 Note Initiated On: 07/12/2020 4:40 PM Estimated Blood Loss: Estimated blood loss: none.
[2020-07-12 17:18] VITALS: BP 123/82
== END 2020-07-12 17:18 | disposition home or self-care (01) ==
LOC: M OPP 15:00
PROVIDERS: ATTEND Internal Medicine Gastroenterology
DX: K22.70 Barrett's esophagus without dysplasia (principal); R12 Heartburn; R05 Cough; K44.9 Diaphragmatic hernia without obstruction or gangrene; Z79.82 Long term (current) use of aspirin; Z79.899 Other long term (current) drug therapy
CPT/HCPCS: 43239; 88305; J3010

== ENCOUNTER → 2020-08-19 | Outpatient (CLI) | payer OTHER ==
[~2020-08-19] MED LIST changes: +D31000TA2 PO; -LIDOCAINE 2% 100MG/5ML SDV (FOR ANES.) As Ordered ONE; -NS 1,000 ML IV ONE; -OMEP-218; +OMEP-218 PO; -SERT-138; +SERT-138 PO; -propofoL 200 MG/20 ML VIAL As Ordered ONE
== END ==
LOC: M LABSMTC 10:29
PROVIDERS: ATTEND Anesthesiology
DX: Z01.812 Encounter for preprocedural laboratory examination (principal); Z20.828 Contact with and (suspected) exposure to other viral communicable diseases

== ENCOUNTER → 2020-08-19 | Outpatient (CLI) | payer OTHER ==
--- NOTE | 2020-08-22 20:25 | ECGEPIP ---
[facility] Test Date: 2020-08-19 Pat Name: SERENITY RODRIGUEZ Department: Room: - Gender: Female [employer]er: : 1960 Requested By: Osmin Gonzalez Order Number: [id number] Reading MD: Williams Martin Measurements Intervals [place] Rate: 76 P: 53 NM: 335 QRS: 69 QRSD: 101 T: 66 QT: 372 QTc: 420 Interpretive Statements Sinus rhythm, probably normal ECG. Interpretation difficult due to excessive noise. No significant change apparent compared with 07/01/2018 other than absence of b baseline noise on the prior ECG. Electronically Signed on 08-22-2020 20:25:18 EST by Williams Martin
== END ==
LOC: M EKG 12:41
PROVIDERS: ATTEND Anesthesiology
DX: I10 Essential (primary) hypertension (principal)

== ENCOUNTER 2020-08-24 07:28 | Day surgery (SDC) | payer OTHER ==
[~2020-08-24] VITALS: Ht 177.8 cm; Wt 93.9 kg
[~2020-08-24 07:28] MED LIST changes: +LR 1,000 ML IV ONE; +ceFAZolin SOD 2 GM in IV 1 EA IV ONE
[2020-08-24] MEDS ORDERED: MIDAZOLAM INJ 2MG/2ML VIAL (J2250 PER 1MG) As Ordered ONE (08:02)
[2020-08-24] MEDS ORDERED: LIDOCAINE 2% 100MG/5ML SDV (FOR ANES.) As Ordered ONE (08:03)
[2020-08-24] MEDS ORDERED: fentaNYL 100 MCG/2 ML INJECTION (J3010) As Ordered ONE (08:03)
[2020-08-24] MEDS ORDERED: propofoL 200 MG/20 ML VIAL As Ordered ONE (08:03)
[2020-08-24] MEDS ORDERED: SODIUM BICARBONATE 8.4% INJ 50MEQ 50 ML VIAL As Ordered ONE (09:00)
[2020-08-24] MEDS ORDERED: LIDOCAINE 1% SDV 30ML VIAL As Ordered ONE (09:00)
[2020-08-24] MEDS ORDERED: BACITRACIN PWD 50,000 UNITS VIAL As Ordered ONE (09:01)
--- NOTE | 2020-08-24 10:25 | REP ---
INDICATION: PLACEMENT OF INTERSTIM. COMPARISON: None. TECHNIQUE: Three views. 1 minutes 6 seconds of fluoroscopy time is reported. FINDINGS: A sequence of 3 last image hold fluoroscopically obtained spot radiographs the pelvis document trans sacral cyst neurostimulator lead placement. IMPRESSION: Procedural imaging. <Electronically signed by Curtis Martinez > 08/24/20 [id number]
[2020-08-24] MEDS ORDERED: ONDANSETRON 4MG/2ML VIAL IV PRN (11:00)
[2020-08-24] MEDS ORDERED: LR 1,000 ML IV SCH (11:00)
[2020-08-24] MEDS ORDERED: oxyCODONE 5MG TAB PO PRN (11:00)
[2020-08-24] MEDS ORDERED: fentaNYL 100 MCG/2 ML INJECTION (J3010) IV PRN (11:00)
--- NOTE | 2020-08-24 11:09 | ROOPDOC ---
[facility] Report Of Operation Report of Operation DATE OF PROCEDURE: 08/24/20 PREPROCEDURE DIAGNOSES: Interstitial cystitis, urgency, frequency, and urge incontinence POSTPROCEDURE DIAGNOSES: Same PROCEDURE: InterStim nerve stimulation stage I: Incision and implantation of tined quadripolar lead electrodes into foramen S3 with fluoroscopic guidance for needle placement InterStim stage II: Incision and subcutaneous implantation of rechargeable sacral nerve neurostimulator with electronic analysis and programming SURGEON: Tracy Martinez MD HANDBAG STITCHER: None ANESTHESIA: IV Sedation ESTIMATED BLOOD LOSS: Approximately 3 mL. COMPLICATIONS: .None REMARKS: Excellent big toe movement and anal Nilda. Pt felt vaginally. PROCEDURE NOTE: Jesse had a bilateral percutaneous InterStim test this past week and she was very happy with the results. Her pain was much reduced and she was no longer getting bladder spasms and the urgency and urge incontinence was much improved. She wanted to proceed with permanent implantation with the rechargeable battery. All options, alternatives, risks, benefits were discussed and informed consent was obtained in both verbal and written form. DESCRIPTION OF PROCEDURE: The patient was brought into the operating room and placed in the prone position. She had pillows placed under her pelvis and under her shins. Tape was placed so that we could see her anus. IV sedation was given and she was prepped and draped in the usual fashion. A special foramen needle was placed 2 cm above the sacral notch and 3 cm lateral where the software tester had been placed. Using fluoroscopy this was then placed through the S3 foramen. The depth of the needle was confirmed and adjusted fluoroscopically. The patient then identified the location of sensation which was in her labia. We also had direct observation of lifting of the perineum and plantar flexion of the great toe. The foramen needle stylette was removed and a directional guide was placed and confirmed fluoroscopy. Lead introducer sheath and dilator was placed through the needle and the needle was removed. The lead was seen until 3 electrodes were visible below the sacrum. The electrode was tested for location and patient sensation which was vaginal, visualization of Nilda, and plantar flexion. Other incision was made into the subcutaneous tissue posterior to the iliac crest and lateral to the sacrum. Blunt dissection was continued until there was a pocket large enough for the rechargeable battery. The tunneling tool with straw was placed from the lead exit site subcutaneously to the incised pocket. The tunneling tube was removed and the lead was fed through the straw and pulled out of the pocket site. The lead was cleansed of bodily fluid, dried and antibiotic irrigation was used. The lead was then inserted into the header of the InterStim micro-neurostimulator until the blue tip was visualized at the distal window the single setscrew was tightened. The neurostimulator was placed in the subcutaneous pocket with the edge identified side placed upwards and the excessive lead wrapped counterclockwise around the neurostimulator. The programming head was placed over the implanted neurostimulator in a sterile cover to ensure adequate lead connection and the parameters with were within normal limits. Impedances were confirmed to be within normal limits. The wound was again irrigated with antibiotic solution and closed with 2-0 chromic subcuticular sutures and 4-0 Vicryl skin sutures. Counts were correct. Steri- Strips and gauze was placed over the incision. The patient tolerated the procedure well. TRACY MARTINEZ MD Aug 24, 2020 11:09
[2020-08-24 11:15] VITALS: BP 135/88
== END 2020-08-24 11:31 | disposition home or self-care (01) ==
LOC: M SDC 07:28
PROVIDERS: ATTEND Specialist
DX: N30.10 Interstitial cystitis (chronic) without hematuria (principal); R35.0 Frequency of micturition; N39.41 Urge incontinence; R35.1 Nocturia; I12.9 Hypertensive chronic kidney disease with stage 1 through stage 4 chronic kidney disease, or unspecified chronic kidney disease; N18.2 Chronic kidney disease, stage 2 (mild); R01.1 Cardiac murmur, unspecified; K21.9 Gastro-esophageal reflux disease without esophagitis; F32.9 Major depressive disorder, single episode, unspecified; G31.84 Mild cognitive impairment of uncertain or unknown etiology; J45.909 Unspecified asthma, uncomplicated; Z79.82 Long term (current) use of aspirin; Z79.899 Other long term (current) drug therapy; Z87.820 Personal history of traumatic brain injury; Z90.710 Acquired absence of both cervix and uterus; Z98.51 Tubal ligation status
CPT/HCPCS: 64581; 64590; 76000; C1787; C1897; J0690; J2250; J3010

== ENCOUNTER → 2021-07-13 | Outpatient (CLI) | payer OTHER ==
[~2021-07-13] MED LIST changes: +ISOVUE-370 76% 100ML VIAL As Ordered ONE; -LR 1,000 ML IV ONE; -ceFAZolin SOD 2 GM in IV 1 EA IV ONE
--- NOTE | 2021-07-13 10:16 | REP ---
INDICATION: ABD PAIN. COMPARISON: Multiple the latest 09/18/2018 TECHNIQUE: Standard helical technique after the intravenous administration of 100 cc Isovue 370 FINDINGS: The lung bases are clear and unchanged. The liver, gallbladder, spleen, pancreas, adrenal glands, and kidneys are again seen to be within normal limits. The abdominal aorta and para-aortic regions are within normal limits. The bowel loops and the mesenteries are within normal limits. There is no evidence of a mass or adenopathy. There is no free fluid or free air. There is mild Valerie vesicular fatty infiltration essentially unchanged from the prior exam. The caro of the urinary bladder may be mildly asymmetrically thickened. There is mild corpora amylacea status quo. Since the last exam, a lead from a stimulator device has been placed in the right posterior hemipelvis. Bone window technique throughout the examination shows no significant change in appearance of the osseous structures. IMPRESSION: 1. Findings involving the urinary bladder as described above. Cystitis cannot be ruled out. 2. Placement of stimulator device as described above. <Electronically signed by Yusuf Cohen > 07/13/21 [id number]
== END ==
LOC: M RAD 09:00
PROVIDERS: ATTEND Urology
DX: R10.9 Unspecified abdominal pain (principal)
CPT/HCPCS: 74177; Q9967

== ENCOUNTER → 2021-08-09 | Outpatient (REF) | payer OTHER ==
[~2021-08-09] MED LIST changes: -ISOVUE-370 76% 100ML VIAL As Ordered ONE; +LOSA50TA28 PO; -LOSA50TA88 PO; +OMEP-173 PO; -OMEP-218 PO; +ONDA-195 PO
[2021-08-09 13:26] LABS: AMORPHOUS SEDIMENT SMALL (NEGATIVE); BACTERIA, URINE AUTO NEGATIVE (NEGATIVE); MUCUS, URINE LARGE (NEGATIVE); RBC, URINE AUTO 0 /HPF (0-3); SQUAMOUS EPITHELIAL CELL UR AU 4 /HPF (0-6); WBC, URINE AUTO 3 /HPF (0-3)
== END ==
LOC: M SMT 12:42
PROVIDERS: ATTEND Specialist
DX: R39.15 Urgency of urination (principal)

== ENCOUNTER → 2021-10-06 | Outpatient (CLI) | payer OTHER | LOC: M EKG 11:08 | PROVIDERS: ATTEND Specialist | DX: Z01.818 Encounter for other preprocedural examination (principal) ==

== ENCOUNTER → 2021-10-06 | Outpatient (CLI) | payer OTHER | LOC: M LABSMTC 10:51 | PROVIDERS: ATTEND Anesthesiology | DX: Z01.812 Encounter for preprocedural laboratory examination (principal); Z20.822 Contact with and (suspected) exposure to COVID-19 ==

== ENCOUNTER → 2021-10-06 | Outpatient (CLI) | payer OTHER | LOC: M PLALAB 10:37 | PROVIDERS: ATTEND Specialist | DX: Z01.812 Encounter for preprocedural laboratory examination (principal) ==

== ENCOUNTER → 2021-10-06 | Outpatient (REF) | payer OTHER ==
[2021-10-06 13:44] LABS: APPEARANCE, URINE CLEAR (CLEAR); BACTERIA, URINE AUTO NEGATIVE (NEGATIVE); BILIRUBIN, URINE AUTO NEGATIVE (NEGATIVE); BLOOD, URINE BLOOD NEGATIVE (NEGATIVE); COLOR, URINE YELLOW (YELLOW); GLUCOSE, URINE (UA) AUTO NEGATIVE (NEGATIVE); KETONE, URINE AUTO NEGATIVE (NEGATIVE); LEUKOCYTE ESTERASE, URINE AUTO TRACE (NEGATIVE); NITRITE, URINE AUTO NEGATIVE (NEGATIVE); PROTEIN, URINE AUTO NEGATIVE (NEGATIVE); RBC, URINE AUTO 4 /HPF (0-3); SPECIFIC GRAVITY URINE AUTO 1.014 (1.002-1.035); SQUAMOUS EPITHELIAL CELL UR AU 1 /HPF (0-6); UROBILINOGEN, URINE AUTO 0.2 mg/dL (0.0-2.0); WBC, URINE AUTO 4 /HPF (0-3)
== END ==
LOC: M SMT 12:46
PROVIDERS: ATTEND Specialist
DX: Z01.818 Encounter for other preprocedural examination (principal); Z79.899 Other long term (current) drug therapy

== ENCOUNTER 2021-10-09 09:51 | Day surgery (SDC) | payer OTHER ==
[~2021-10-09] VITALS: Ht 177.8 cm; Wt 91.5 kg
[~2021-10-09 09:51] MED LIST changes: +LIDOCAINE 1% MDV 20ML VIAL SQ PRN; +LR 1,000 ML IV ONE; +ceFAZolin SOD 2 GM in IV 1 EA IV ONE
[2021-10-09] MEDS ORDERED: TRIAMCINOLONE ACETONIDE SUSP 40 MG/ML VIAL (J3301) As Ordered ONE ×2 (10:51→11:52)
[2021-10-09] MEDS ORDERED: fentaNYL 100 MCG/2 ML INJECTION (J3010) As Ordered ONE (10:52)
[2021-10-09] MEDS ORDERED: ONDANSETRON 4MG/2ML VIAL As Ordered ONE (10:52)
[2021-10-09] MEDS ORDERED: dexameTHASONE 4 MG/ML 1ML VIAL (J1100 PER 1MG) As Ordered ONE (10:52)
[2021-10-09] MEDS ORDERED: LIDOCAINE 2% 100MG/5ML SDV (FOR ANES.) As Ordered ONE (10:52)
[2021-10-09] MEDS ORDERED: propofoL 200 MG/20 ML VIAL As Ordered ONE ×2 (10:52→11:45)
[2021-10-09] MEDS ORDERED: MIDAZOLAM INJ 2MG/2ML VIAL (J2250 PER 1MG) As Ordered ONE (10:52)
[2021-10-09] MEDS ORDERED: LIDOCAINE 2% 5ML JELLY UROJET As Ordered ONE (11:36)
[2021-10-09] MEDS ORDERED: LIDOCAINE 1% MDV 50ML VIAL As Ordered ONE (11:37)
[2021-10-09] MEDS ORDERED: ACETAMINOPHEN 1000MG 100ML IV BTL (OFIRMEV) (J0131 PER 10MG) As Ordered ONE (11:53)
[2021-10-09] MEDS ORDERED: LABETALOL 100MG/20ML VIAL As Ordered ONE (11:55)
[2021-10-09] MEDS ORDERED: MEPERIDINE INJ 25 MG/ML VIAL (J2175) As Ordered ONE (12:39)
[2021-10-09] MEDS ORDERED: fentaNYL 100 MCG/2 ML INJECTION (J3010) IV PRN (12:55)
[2021-10-09] MEDS ORDERED: LABETALOL 100MG/20ML VIAL IV PRN (12:55)
[2021-10-09] MEDS ORDERED: LR 1,000 ML IV SCH (12:55)
[2021-10-09] MEDS ORDERED: ONDANSETRON 4MG/2ML VIAL IV PRN (12:55)
[2021-10-09] MEDS: MEPERIDINE INJ 25 MG/ML VIAL (J2175) IV PRN ×2 (12:57→13:02)
[2021-10-09 13:27] VITALS: BP 119/69
== END 2021-10-09 14:10 | disposition home or self-care (01) ==
LOC: M SDC 09:51
PROVIDERS: ATTEND Specialist
DX: N30.10 Interstitial cystitis (chronic) without hematuria (principal); Z96.0 Presence of urogenital implants; R32 Unspecified urinary incontinence; N32.81 Overactive bladder; I12.9 Hypertensive chronic kidney disease with stage 1 through stage 4 chronic kidney disease, or unspecified chronic kidney disease; R06.00 Dyspnea, unspecified; N18.2 Chronic kidney disease, stage 2 (mild); M19.90 Unspecified osteoarthritis, unspecified site; K21.9 Gastro-esophageal reflux disease without esophagitis; J45.909 Unspecified asthma, uncomplicated; R06.83 Snoring; Z88.1 Allergy status to other antibiotic agents; Z79.899 Other long term (current) drug therapy; Z79.82 Long term (current) use of aspirin; Z79.890 Hormone replacement therapy
CPT/HCPCS: 52260; 52287; J0131; J0690; J1100; J2175; J2250; J2405; J3010; J3301

== ENCOUNTER → 2021-11-16 | Outpatient (CLI) | payer OTHER ==
[~2021-11-16] MED LIST changes: -D31000TA2 PO; -LIDOCAINE 1% MDV 20ML VIAL SQ PRN; -LR 1,000 ML IV ONE; +VITA100093 PO; -ceFAZolin SOD 2 GM in IV 1 EA IV ONE
== END ==
LOC: M PLAIMG 13:33
PROVIDERS: ATTEND Orthopaedic Surgery
DX: M17.12 Unilateral primary osteoarthritis, left knee (principal)